=== PATIENT | female | born 1970 | race Caucasian/White ===

== ENCOUNTER 2017-04-28 04:08 | Emergency (ER) | payer OTHER ==
[~2017-04-28] VITALS: Ht 165.1 cm; Wt 104.3 kg
[~2017-04-28 04:08] MED LIST: ANTIOXIDANT SO1 EACH PO; CLONAZEPAM1 MG PO; DALMANE30 MG PO; GLUMETZA1000 MG PO; HYDROCORTISONE-30 GM TP; LAC-HYDRIN FIV113 GM TP; SPIRONOLACTONE100 MG PO; TRAZODONE HCL150 MG PO; ZOLOFT100 MG PO; [UNRECOGNIZED DRUG - OTHER] PO
[2017-04-28] MEDS ORDERED: DICLOFENAC SODI50 MG PO (09:59)
[2017-04-28] MEDS ORDERED: RECTICARE30 GM RECTAL (09:59)
== END 2017-04-28 10:04 | disposition home or self-care (01) ==
LOC: ER 04:08
DX: K62.5 Hemorrhage of anus and rectum (principal)